=== PATIENT | female | born 1970 | race Caucasian/White ===

== ENCOUNTER 2016-07-25 23:32 | Observation (INO) | payer OTHER ==
[~2016-07-25] VITALS: Ht 157.5 cm; Wt 77.6 kg
[~2016-07-25 23:32] MED LIST: ACCU-CHEK MULT1 EACH MC; ACID CONTROL150 MG PO; ADDERALL10 MG PO; ALPRAZOLAM0.25 MG PO; ALPRAZOLAM2 MG PO; AMBIEN5 M1 PO; ATARAX,VISTARIL50 MG PO; Augmentin PO; BACTRIM,SEPT1 TABLET PO; BENADRYL ALLERG25 MG PO; BENADRYL25 MG PO; CLINDAMYCIN HC300 MG PO; CYMBALTA30 MG PO; CYMBALTA60 MG PO; DESYREL100 MG PO; FLEXERIL10 MG PO; GABAPENTIN300 MG PO; GLUCOPHAGE1000 MG PO; GRALISE300 MG PO; HUMALOG100 UNIT/1 SC; HUMULIN N100 UNITS/ SC; HYDROCODON-ACE1 EAC7 PO; HYDROCODON-ACE1 EAC8 PO; KEFLEX500 MG PO; LANTUS 10100 UNITS/ SC; LANTUS 3 M100 UNITS1 SC; LANTUS100 UNIT/1 IJ; LIDODERM 5% P1 PATCH TD; LISINOPRIL10 MG PO; LITHIUM CARBON300 M1 PO; LITHIUM CARBON300 MG PO; LORTAB 5-325 M1 EACH PO; LUNESTA2 MG PO; MELATONIN10 M1 PO; MELATONIN5 M1 PO; MELOXICAM7.5 MG PO; METFORMIN HCL500 MG PO; MOBIC7.5 MG PO; MOTRIN800 MG PO; NAPROSYN500 MG PO; NEURONTIN300 MG PO; NEURONTIN400 M1 PO; NEURONTIN400 MG PO; NOVOLOG 10100 UNITS/ SC; NOVOLOG100 UNIT/1 SC; OXCARBAZEPINE300 MG PO; PEN-VEE K,VEET500 MG PO; PERCOCET 5/31 TABLET PO; PRAZOSIN HCL1 MG PO; PROMETHAZINE HC25 M1 PO; RANITIDINE HCL150 MG PO; SAPHRIS10 MG SL; SEROQUEL300 MG PO; SIMVASTATIN40 MG PO; TRAMADOL HCL50 MG PO; TRAZODONE HCL100 MG PO; TRILEPTAL150 MG PO; TRILEPTAL300 MG PO; ULTRACET1 TABLET PO; ULTRAM50 MG PO; VALIUM5 MG PO; VICODIN,LORT1 TABLET PO; XANAX1 MG PO; XANAX2 MG PO; ZANTAC150 MG PO; ZOCOR40 MG PO; ZOFRAN ODT4 MG PO; ZOFRAN ODT8 MG PO; ZOFRAN4 MG PO; ZZZQUIL25 MG PO
[2016-07-26 01:43] LABS: CHLORIDE 101 mEq/L (99-109); POTASSIUM 4.3 mEq/L (3.7-5.4); SODIUM 133 mEq/L (136-147)
[2016-07-26 01:44] LABS: GLUCOSE 374 mg/dL (70-99)
[2016-07-26 01:46] LABS: ANION GAP 9 MEQ/L (2-14); MCH 23.8 PG (29.0-34.0); MCHC 32.3 G/DL (30.0-36.0); MCV 73.8 FL (83-99); MEAN PLAT.VOLUME 8.9 uM^3 (9.5-12.4); PLATELET COUNT 372 K/uL (156-360); RBC DIS.WIDTH-CV 15.9 % (11.8-14.6); RBC DIS.WIDTH-SD 42.2 % (39-53); RED BLOOD COUNT 4.74 M/uL (3.80-5.20); WHITE BLOOD COUNT 9.2 K/uL (4.1-10.2)
[2016-07-26 01:48] LABS: GFR ESTIMATE (CALCULATED) > 59 mL/min/
[2016-07-26 01:49] LABS: UREA NITROGEN (BUN) 10 mg/dL (9-23)
[2016-07-26 01:54] LABS: TROP-I INTERPRETATION NEGATIVE; TROPONIN-I < 0.01 ng/mL (0.0-0.30)
[2016-07-26] MEDS ORDERED: XANAX1 MG PO (02:52)
[2016-07-26 02:55] LABS: ADD MIUA? NO; BILIRUBIN NEGATIVE; BLOOD NEGATIVE; COLOR STRAW ((YELLOW)); GLUCOSE (STRIP) >=500; KETONES NEGATIVE; LEUKOCYTES NEGATIVE; NITRITE NEGATIVE; PROTEIN (STRIP) NEGATIVE; SPECIFIC GRAVITY 1.023 (1.000-1.030); UCUL ADDED? NO; UROBILINOGEN 0.2 MG/DL (0.2-1.0)
[2016-07-26 03:04] LABS: ADD MEDTOX COMMENT Y; AMPHETAMINE NEGATIVE (500 ng/mL); BARBITURATES NEGATIVE (200 ng/mL); BENZODIAZEPINES PRESUMPTIVE POSITIVE (150 ng/mL); COCAINE NEGATIVE (150 ng/mL); INTERNAL CONTROLS VALID? YES; METHADONE NEGATIVE (200 ng/mL); METHAMPHETAMINE NEGATIVE (500 ng/mL); OPIATES (MORPHINE) NEGATIVE (100 ng/mL); OXYCODONE NEGATIVE (100 ng/mL); PHENCYCLIDINE NEGATIVE (25 ng/mL); PROPOXYPHENE NEGATIVE (300 ng/mL); THC CANNABINOIDS NEGATIVE (50 ng/mL); TRICYCLIC ANTIDEPRESSANTS NEGATIVE (300 ng/mL)
[2016-07-26 03:35] LABS: D-DIMER ELISA 0.29 mg/L FEU (< 0.57)
[2016-07-26 04:19] VITALS: BP 131/71
[2016-07-26 04:40] LABS: BENZODIAZEPINES QUANT VALUE 0 NG/ML; BENZODIAZEPINES, URINE SCREEN Negative (200 ng/mL)
[2016-07-26 06:44] LABS: Estimated Average Glucose 321 mg/dL (70-123); HEMOGLOBIN A1c (GLYCOHEMOGLOB) 12.8 % HGB (Below 5.7)
[2016-07-26 07:25] LABS: TROP-I INTERPRETATION NEGATIVE; TROPONIN-I < 0.01 ng/mL (0.0-0.30)
[2016-07-26 08:00] VITALS: BP 123/77
[2016-07-26 08:08] LABS: POINT-OF-CARE METER ID UU14162513
[2016-07-26 09:56] LABS: POINT-OF-CARE METER ID UU13113778; POINT-OF-CARE USER ID 515033160
[2016-07-26 12:47] LABS: POINT-OF-CARE METER ID UU14162513
[2016-07-26] MEDS ORDERED: TRILEPTAL300 MG PO (13:14)
[2016-07-26] MEDS ORDERED: NOVOLOG 10100 UNITS/ SC (13:15)
[2016-07-26] MEDS ORDERED: REMERON30 M2 PO (13:16)
[2016-07-26] MEDS ORDERED: ABILIFY5 MG PO (13:16)
[2016-07-26] MEDS ORDERED: DESYREL300 MG PO (13:16)
[2016-07-26] MEDS ORDERED: DURAGESIC50 MCG TD (13:17)
[2016-07-26] MEDS ORDERED: BENADRYL25 MG PO (13:17)
[2016-07-26] MEDS ORDERED: LYRICA200 MG PO (13:18)
[2016-07-26] MEDS ORDERED: GLUCOPHAGE500 MG PO (13:18)
[2016-07-26] MEDS ORDERED: MEVACOR40 MG PO (13:18)
[2016-07-26] MEDS ORDERED: LANTUS 10100 UNITS/ SC (13:35)
[2016-07-26 15:01] LABS: TROP-I INTERPRETATION NEGATIVE; TROPONIN-I < 0.01 ng/mL (0.0-0.30)
[2016-07-26] MEDS ORDERED: ASPIR-LOW81 MG PO (15:36)
[2016-07-26] MEDS ORDERED: BACITRACIN28.4 GM TP (15:36)
== END 2016-07-26 17:05 | disposition home or self-care (01) ==
LOC: EME 23:32 → EDOF 07-26 02:08 → 5WEST 07-26 04:04
PROVIDERS: Emergency Medicine; Hospitalist; Physician Assistant Medical
DX: R07.2 Precordial pain (principal); E11.40 Type 2 diabetes mellitus with diabetic neuropathy, unspecified; I10 Essential (primary) hypertension; E78.5 Hyperlipidemia, unspecified; F31.9 Bipolar disorder, unspecified; F17.200 Nicotine dependence, unspecified, uncomplicated; E11.65 Type 2 diabetes mellitus with hyperglycemia; E78.00 Pure hypercholesterolemia, unspecified; F43.10 Post-traumatic stress disorder, unspecified
CPT/HCPCS: 71020; 73650; 80048; 81003; 82948; 83036; 84484; 84999; 85027; 85379; 87040; 93005; 93306; 93971; 99281; 99284; G0378; J1200; J1650; J1815; J1885; J3480; J7030

== ENCOUNTER → 2016-08-07 | Outpatient (CLI) | payer OTHER ==
[~2016-08-07] MED LIST changes: +ABILIFY5 MG PO; +ASPIR-LOW81 MG PO; +BACITRACIN28.4 GM TP; +DESYREL300 MG PO; +DURAGESIC50 MCG TD; +GLUCOPHAGE500 MG PO; +LYRICA200 MG PO; +MEVACOR40 MG PO; +REMERON30 M2 PO
== END | disposition home or self-care (01) ==
LOC: CDC 11:27
DX: R94.31 Abnormal electrocardiogram [ECG] [EKG] (principal); G56.21 Lesion of ulnar nerve, right upper limb; G56.01 Carpal tunnel syndrome, right upper limb
CPT/HCPCS: 93000

== ENCOUNTER 2017-01-08 15:28 | Inpatient (IN) | payer OTHER ==
[~2017-01-08] VITALS: Ht 157.5 cm; Wt 69.0 kg
[2017-01-08 16:35] LABS: HEMATOCRIT 45.7 % (36.0-46.0); MCH 25.6 PG (29.0-34.0); MCHC 34.1 G/DL (30.0-36.0); MEAN PLAT.VOLUME 9.6 uM^3 (9.5-12.4); PLATELET COUNT 463 K/uL (156-360); RBC DIS.WIDTH-CV 15.3 % (11.8-14.6); RBC DIS.WIDTH-SD 41.2 % (39-53); RED BLOOD COUNT 6.09 M/uL (3.80-5.20); WHITE BLOOD COUNT 20.2 K/uL (4.1-10.2)
[2017-01-08 16:45] LABS: CHLORIDE 81 mEq/L (99-109); POTASSIUM 5.2 mEq/L (3.7-5.4); SODIUM 126 mEq/L (136-147)
[2017-01-08 16:48] LABS: ANION GAP 28 MEQ/L (2-14)
[2017-01-08 16:49] LABS: TOTAL BILIRUBIN 0.4 mg/dL (0.0-1.0)
[2017-01-08 16:51] LABS: ALKALINE PHOSPHATASE 170 IU/L (3-129); GFR ESTIMATE (CALCULATED) 30 mL/min/
[2017-01-08 16:52] LABS: UREA NITROGEN (BUN) 38 mg/dL (9-23)
[2017-01-08 16:57] LABS: GLUCOSE 731 mg/dL (70-99)
[2017-01-08 17:00] LABS: QUANTITATIVE HCG < 4.0 MIU/ML
[2017-01-08 17:22] LABS: CARBON DIOXIDE (BICARBONATE) 23.4 MEQ/L (20-31)
[2017-01-08 18:22] LABS: BASE EXCESS -1.7 mEq/L (-3 to +3); BICARBONATE 22.1 mEq/L (22-26); CARBOXY HGB 3.7 % (0-5); METHEMOGLOBIN 0.7 % (0-1.5); PCO2 34 mm Hg (35-45); PO2 64 mm Hg (80-100); pH 7.42 (7.35-7.45)
[2017-01-08 18:24] LABS: COMMENTS - BLOOD GASES A+C+; DEVICE RA; SITE LR
[2017-01-08 18:45] LABS: TROP-I INTERPRETATION NEGATIVE; TROPONIN-I < 0.01 ng/mL (0.0-0.30)
[2017-01-08 19:23] LABS: LIPASE 4 U/L (1.0-51.0)
[2017-01-08 21:05] LABS: ADD MIUA? YES; BILIRUBIN NEGATIVE; BLOOD SMALL; COLOR STRAW ((YELLOW)); GLUCOSE (STRIP) >=500; KETONES 20; LEUKOCYTES NEGATIVE; NITRITE NEGATIVE; PROTEIN (STRIP) 30; SPECIFIC GRAVITY 1.024 (1.000-1.030); UROBILINOGEN 0.2 MG/DL (0.2-1.0)
[2017-01-08] MEDS ORDERED: LYRICA200 MG PO (21:12)
[2017-01-08 21:15] LABS: BACTERIA NONE SEEN /HPF; EPITHELIAL CELLS 1+ /HPF; MUCUS NONE SEEN /LPF; RED BLOOD CELLS 0-5 /HPF (0-5); UCUL ADDED? NO; WHITE BLOOD CELLS 0-5 /HPF (0-5)
[2017-01-08 21:42] LABS: POTASSIUM 4.4 mEq/L (3.7-5.4); SODIUM 130 mEq/L (136-147)
[2017-01-08 21:43] LABS: CHLORIDE 96 mEq/L (99-109)
[2017-01-08 21:46] LABS: ANION GAP 19 MEQ/L (2-14)
[2017-01-08 21:48] LABS: ALKALINE PHOSPHATASE 135 IU/L (3-129)
[2017-01-08 21:49] LABS: GFR ESTIMATE (CALCULATED) 43 mL/min/; GLUCOSE 528 mg/dL (70-99); UREA NITROGEN (BUN) 34 mg/dL (9-23)
[2017-01-08 21:50] LABS: TOTAL BILIRUBIN 0.3 mg/dL (0.0-1.0)
[2017-01-09] VITALS (7 sets, daily range): BP systolic 109–190; BP diastolic 57–89
[2017-01-09 00:07] LABS: POINT-OF-CARE METER ID UU13113702
[2017-01-09 01:21] LABS: TROP-I INTERPRETATION NEGATIVE; TROPONIN-I 0.04 ng/mL (0.0-0.30)
[2017-01-09 06:14] LABS: HEMATOCRIT 31.7 % (36.0-46.0); MCH 25.8 PG (29.0-34.0); MCHC 33.8 G/DL (30.0-36.0); MCV 76.4 FL (83-99); MEAN PLAT.VOLUME 9.2 uM^3 (9.5-12.4); PLATELET COUNT 329 K/uL (156-360); RBC DIS.WIDTH-CV 15.5 % (11.8-14.6); RBC DIS.WIDTH-SD 43.3 % (39-53)
[2017-01-09 06:15] LABS: RED BLOOD COUNT 4.15 M/uL (3.80-5.20)
[2017-01-09 06:37] LABS: ANION GAP 10 MEQ/L (2-14); CHLORIDE 103 MEQ/L (99-109); GFR ESTIMATE (CALCULATED) > 59 mL/min/; GLUCOSE 228 mg/dL (70-99); POTASSIUM 3.8 MEQ/L (3.7-5.4); SAMPLE HEMOLYSIS CHECK 0; SAMPLE ICTERIC CHECK 0; SAMPLE LIPEMIA CHECK 0; SODIUM 136 MEQ/L (136-147); UREA NITROGEN (BUN) 25 mg/dL (9-23)
[2017-01-09 06:40] LABS: Estimated Average Glucose 372 mg/dL (70-123)
[2017-01-09 06:44] LABS: POINT-OF-CARE METER ID UU13113725; POINT-OF-CARE USER ID 608261329
[2017-01-09 06:49] LABS: HEMOGLOBIN A1c (GLYCOHEMOGLOB) 14.6 % HGB (Below 5.7)
[2017-01-09 06:57] LABS: TROP-I INTERPRETATION NEGATIVE; TROPONIN-I 0.06 ng/mL (0.0-0.30)
[2017-01-09 08:01] LABS: EOSINOPHIL (%) 0 % (0-5); IMMATURE GRANULOCYTE (%) 0.7 % (0.0-0.7); IMMATURE GRANULOCYTE COUNT 0.2 K/uL; INSTRUMENT ABS NEUTROPHIL CT 15.7 K/uL; LYMPHOCYTE COUNT 3.5 K/uL (1.0-2.8); MONOCYTE (%) 7.8 % (3-12); MONOCYTE COUNT 1.6 K/uL (0-0.8); NEUTROPHIL (%) 74.9 % (45-76); NEUTROPHIL COUNT 15.7 K/uL (1.8-6.4)
[2017-01-09 11:22] LABS: POINT-OF-CARE METER ID UU13113725
[2017-01-09 16:41] LABS: POINT-OF-CARE METER ID UU13113725
[2017-01-09 19:57] LABS: HEMATOCRIT 32.4 % (36.0-46.0); MCV 77.3 FL (83-99)
[2017-01-09 21:42] LABS: POINT-OF-CARE METER ID UU13113725; POINT-OF-CARE USER ID 608261316
[2017-01-10 00:39] VITALS: BP 155/77
[2017-01-10 05:23] LABS: ANION GAP 8 MEQ/L (2-14); CHLORIDE 106 MEQ/L (99-109); POTASSIUM 3.2 MEQ/L (3.7-5.4); SAMPLE HEMOLYSIS CHECK 0; SAMPLE ICTERIC CHECK 0; SAMPLE LIPEMIA CHECK 0; SODIUM 136 MEQ/L (136-147)
[2017-01-10 05:24] LABS: HEMATOCRIT 40.4 % (36.0-46.0); MCH 26.6 PG (29.0-34.0); MCHC 34.4 G/DL (30.0-36.0); MCV 77.4 FL (83-99); RBC DIS.WIDTH-CV 15.8 % (11.8-14.6); RBC DIS.WIDTH-SD 44.4 % (39-53); RED BLOOD COUNT 5.22 M/uL (3.80-5.20); WHITE BLOOD COUNT 13.9 K/uL (4.1-10.2)
[2017-01-10 05:29] LABS: GFR ESTIMATE (CALCULATED) > 59 mL/min/; GLUCOSE 132 mg/dL (70-99); UREA NITROGEN (BUN) 9 mg/dL (9-23)
[2017-01-10 06:38] LABS: POINT-OF-CARE METER ID UU13113725
[2017-01-10 06:46] LABS: MEAN PLAT.VOLUME 9.6 uM^3 (9.5-12.4); PLAT.SUFFICIENCY ADEQUATE; PLATELET COUNT 216 K/uL (156-360)
[2017-01-10 08:35] VITALS: BP 138/80
[2017-01-10 08:36] VITALS: BP 138/80
[2017-01-10] MEDS ORDERED: NOVOLOG 10100 UNITS/ SC (09:28)
[2017-01-10 10:42] LABS: POINT-OF-CARE METER ID UU13113725
[2017-01-10 11:38] VITALS: BP 114/65
[2017-01-10 15:19] LABS: POINT-OF-CARE METER ID UU13113702
[2017-01-10 16:30] VITALS: BP 140/77
[2017-01-10 16:44] LABS: POINT-OF-CARE METER ID UU13113774
[2017-01-10 20:57] LABS: POINT-OF-CARE METER ID UU13113725
[2017-01-10 23:16] VITALS: BP 130/75
[2017-01-11 03:54] VITALS: BP 105/58
[2017-01-11 06:30] LABS: POINT-OF-CARE METER ID UU13113774
[2017-01-11 08:03] VITALS: BP 116/60
[2017-01-11 09:41] LABS: HEMATOCRIT 30.2 % (36.0-46.0); MCHC 34.1 G/DL (30.0-36.0); MCV 79.1 FL (83-99); MEAN PLAT.VOLUME 9.4 uM^3 (9.5-12.4); PLATELET COUNT 292 K/uL (156-360); RBC DIS.WIDTH-CV 15.9 % (11.8-14.6); RBC DIS.WIDTH-SD 45.5 % (39-53); RED BLOOD COUNT 3.82 M/uL (3.80-5.20); WHITE BLOOD COUNT 9.1 K/uL (4.1-10.2)
[2017-01-11 09:59] LABS: ANION GAP 4 MEQ/L (2-14); CHLORIDE 110 MEQ/L (99-109); POTASSIUM 3.7 MEQ/L (3.7-5.4); SAMPLE HEMOLYSIS CHECK 0; SAMPLE ICTERIC CHECK 0; SAMPLE LIPEMIA CHECK 0; SODIUM 140 MEQ/L (136-147)
[2017-01-11 10:05] LABS: GFR ESTIMATE (CALCULATED) > 59 mL/min/; GLUCOSE 115 mg/dL (70-99); UREA NITROGEN (BUN) 5 mg/dL (9-23)
[2017-01-11 11:47] LABS: POINT-OF-CARE METER ID UU13113774
[2017-01-11 16:24] LABS: POINT-OF-CARE METER ID UU13113725
[2017-01-11 16:53] VITALS: BP 103/60
[2017-01-11 21:28] LABS: POINT-OF-CARE METER ID UU13113774
[2017-01-11 23:56] VITALS: BP 118/63
[2017-01-12 05:56] LABS: POINT-OF-CARE METER ID UU13113725
[2017-01-12 07:28] VITALS: BP 122/66
[2017-01-12 11:11] LABS: POINT-OF-CARE METER ID UU13113774
[2017-01-12] MEDS ORDERED: PROTONIX40 MG PO (11:52)
[2017-01-12] MEDS ORDERED: ZOFRAN ODT8 MG PO (11:55)
== END 2017-01-12 13:25 | disposition home or self-care (01) | DRG 683 ==
LOC: EME 15:28 → 5EAST 23:02 → EDOF 23:02 → ENRESERV 23:04 → EDOF 01-09 00:13 → 5EAST 01-09 00:20
PROVIDERS: Emergency Medicine; Hospitalist; Internal Medicine; Physician Assistant
DX: N17.9 Acute kidney failure, unspecified (principal); E11.65 Type 2 diabetes mellitus with hyperglycemia; E87.1 Hypo-osmolality and hyponatremia; E87.6 Hypokalemia; F31.9 Bipolar disorder, unspecified; F14.10 Cocaine abuse, uncomplicated; K29.70 Gastritis, unspecified, without bleeding; K05.10 Chronic gingivitis, plaque induced; E11.43 Type 2 diabetes mellitus with diabetic autonomic (poly)neuropathy; L89.629 Pressure ulcer of left heel, unspecified stage; I10 Essential (primary) hypertension; E78.5 Hyperlipidemia, unspecified; K21.9 Gastro-esophageal reflux disease without esophagitis; F43.10 Post-traumatic stress disorder, unspecified; F11.10 Opioid abuse, uncomplicated; F12.10 Cannabis abuse, uncomplicated; F60.2 Antisocial personality disorder; F17.200 Nicotine dependence, unspecified, uncomplicated; F41.9 Anxiety disorder, unspecified; D72.829 Elevated white blood cell count, unspecified; E87.2 Acidosis; J45.909 Unspecified asthma, uncomplicated; Z91.19 Patient's noncompliance with other medical treatment and regimen; Z79.4 Long term (current) use of insulin; Z91.14 Patient's other noncompliance with medication regimen; Z90.49 Acquired absence of other specified parts of digestive tract; Z79.82 Long term (current) use of aspirin; Z79.899 Other long term (current) drug therapy; Z83.3 Family history of diabetes mellitus; K31.84 Gastroparesis
CPT/HCPCS: 36600; 71020; 74176; 80048; 80053; 81003; 82010; 82272; 82803; 82948; 83036; 83605; 83690; 84484; 84702; 85014; 85018; 85025; 85027; 87040; 93005; 99281; 99285; C9113; J1815; J1956; J2060; J2270; J2405; J2543; J3010; J3260; J3370; J7030; J7050

== ENCOUNTER 2017-03-31 13:29 | Emergency (ER) | payer OTHER ==
[~2017-03-31] VITALS: Ht 157.5 cm; Wt 71.2 kg
[~2017-03-31 13:29] MED LIST changes: +PROTONIX40 MG PO
[2017-03-31 13:54] LABS: POINT-OF-CARE METER ID UU13113778
[2017-03-31 14:57] LABS: MCH 25.8 PG (29.0-34.0); MCV 78.2 FL (83-99); MEAN PLAT.VOLUME 10.2 uM^3 (9.5-12.4); PLATELET COUNT 320 K/uL (156-360); RBC DIS.WIDTH-CV 14.6 % (11.8-14.6); RBC DIS.WIDTH-SD 41.1 % (39-53)
[2017-03-31 15:07] LABS: CHLORIDE 100 mEq/L (99-109); SODIUM 132 mEq/L (136-147)
[2017-03-31 15:08] LABS: GLUCOSE 372 mg/dL (70-99)
[2017-03-31 15:10] LABS: ANION GAP 16 MEQ/L (2-14)
[2017-03-31 15:12] LABS: GFR ESTIMATE (CALCULATED) > 59 mL/min/
[2017-03-31 15:13] LABS: UREA NITROGEN (BUN) 12 mg/dL (9-23)
[2017-03-31] MEDS ORDERED: CIPRO500 MG PO (17:12)
[2017-03-31] MEDS ORDERED: FLAGYL500 MG PO (17:12)
[2017-03-31 17:13] LABS: CARBON DIOXIDE (BICARBONATE) 24.5 MEQ/L (20-31)
[2017-03-31 18:05] VITALS: BP 161/91
== END 2017-03-31 18:06 | disposition home or self-care (01) ==
LOC: EME 13:29
PROVIDERS: Emergency Medicine
PROC: 0H98XZZ Drainage of Buttock Skin, External Approach (ICD-10-PCS; principal; 2017-03-31)
DX: L05.01 Pilonidal cyst with abscess (principal); K62.89 Other specified diseases of anus and rectum; E11.40 Type 2 diabetes mellitus with diabetic neuropathy, unspecified; E78.5 Hyperlipidemia, unspecified; F32.9 Major depressive disorder, single episode, unspecified; F31.9 Bipolar disorder, unspecified; F41.9 Anxiety disorder, unspecified; Z79.4 Long term (current) use of insulin; F17.200 Nicotine dependence, unspecified, uncomplicated; Z88.5 Allergy status to narcotic agent
CPT/HCPCS: 74177; 80048; 81003; 82010; 82803; 82948; 85027; 86850; 86900; 86901; 99281; 99284; J2270; J2405; J7030

== ENCOUNTER 2017-05-22 12:29 | Inpatient (IN) | payer OTHER ==
[~2017-05-22] VITALS: Ht 157.5 cm; Wt 75.5 kg
[~2017-05-22 12:29] MED LIST changes: +CIPRO500 MG PO; +FLAGYL500 MG PO
[2017-05-22 13:05] LABS: BASOPHIL (%) 0.3 % (0-1); BASOPHIL COUNT 0.1 K/uL (0-0.1); EOSINOPHIL (%) 0 % (0-5); HEMATOCRIT 47.1 % (36.0-46.0); HEMOGLOBIN 15.6 G/DL (11.9-15.5); IMMATURE GRANULOCYTE (%) 0.7 % (0.0-0.7); LYMPHOCYTE (%) 7.7 % (15-42); LYMPHOCYTE COUNT 1.4 K/uL (1.0-2.8); MCHC 33.1 G/DL (30.0-36.0); MCV 78.6 FL (83-99); MONOCYTE (%) 2.8 % (3-12); MONOCYTE COUNT 0.5 K/uL (0-0.8); NEUTROPHIL (%) 88.5 % (45-76); NEUTROPHIL COUNT 16.1 K/uL (1.8-6.4); PLATELET COUNT 366 K/uL (156-360); RBC DIS.WIDTH-CV 16.3 % (11.8-14.6); RBC DIS.WIDTH-SD 44.9 % (39-53); RED BLOOD COUNT 5.99 M/uL (3.80-5.20); WHITE BLOOD COUNT 18.1 K/uL (4.1-10.2)
[2017-05-22 13:19] LABS: ALBUMIN 4.4 g/dL (3.2-4.8)
[2017-05-22 13:20] LABS: CHLORIDE 98 mEq/L (99-109); POTASSIUM 4.9 mEq/L (3.7-5.4); SODIUM 137 mEq/L (136-147)
[2017-05-22 13:22] LABS: TOTAL PROTEIN 7.8 g/dL (6.4-8.3)
[2017-05-22 13:24] LABS: TOTAL BILIRUBIN 0.3 mg/dL (0.0-1.0)
[2017-05-22 13:25] LABS: ALKALINE PHOSPHATASE 139 IU/L (3-129)
[2017-05-22 13:26] LABS: GFR ESTIMATE (CALCULATED) > 59 mL/min/
[2017-05-22 13:27] LABS: AST (GOT) 12 IU/L (2-34); UREA NITROGEN (BUN) 14 mg/dL (9-23)
[2017-05-22 13:29] LABS: ALT (GPT) 14 IU/L (3-49); LIPASE 7 U/L (1.0-51.0)
[2017-05-22 13:36] LABS: GLUCOSE 451 mg/dL (70-99)
[2017-05-22 13:53] LABS: BASE EXCESS -9.3 mEq/L (-3 to +3); BICARBONATE 13.9 mEq/L (22-26); CARBOXY HGB 0.3 % (0-5); COMMENTS - BLOOD GASES A+C=; METHEMOGLOBIN 0.4 % (0-1.5); PCO2 24 mm Hg (35-45); PO2 102 mm Hg (80-100); SITE LR; pH 7.37 (7.35-7.45)
[2017-05-22 15:33] LABS: CHLORIDE 106 mEq/L (99-109); POTASSIUM 4.7 mEq/L (3.7-5.4); SODIUM 137 mEq/L (136-147)
[2017-05-22 15:35] LABS: GLUCOSE 317 mg/dL (70-99)
[2017-05-22 15:39] LABS: CREATININE 0.9 mg/dL (0.6-1.3); GFR ESTIMATE (CALCULATED) > 59 mL/min/; UREA NITROGEN (BUN) 13 mg/dL (9-23)
[2017-05-22 16:30] LABS: PHOSPHORUS 3.1 mg/dL (2.5-4.9)
[2017-05-22] MEDS ORDERED: LIBRIUM25 MG PO ×2 (16:34→16:35)
[2017-05-22] MEDS ORDERED: HUMULIN R100 UNITS/ SC (16:36)
[2017-05-22] MEDS ORDERED: GERI-LANTA LIQ355 ML PO (16:36)
[2017-05-22] MEDS ORDERED: ADVIL,NUPRIN,M200 MG PO (16:36)
[2017-05-22] MEDS ORDERED: IMODIUM A-D2 M2 PO (16:36)
[2017-05-22] MEDS ORDERED: ZOFRAN4 MG PO (16:37)
[2017-05-22] MEDS ORDERED: B-1100 MG PO (16:37)
[2017-05-22] MEDS ORDERED: ZOFRAN4 MG/2 ML IV (16:38)
[2017-05-22 18:00] VITALS: BP 149/85
[2017-05-22 20:00] VITALS: BP 152/83
[2017-05-22 20:41] LABS: CHLORIDE 105 MEQ/L (99-109); POTASSIUM 4.1 MEQ/L (3.7-5.4); SODIUM 138 MEQ/L (136-147)
[2017-05-22 20:46] LABS: CREATININE 0.7 MG/DL (0.6-1.3); GFR ESTIMATE (CALCULATED) > 59 mL/min/; GLUCOSE 245 mg/dL (70-99); UREA NITROGEN (BUN) 13 mg/dL (9-23)
[2017-05-22 21:00] VITALS: BP 158/89
[2017-05-22 22:00] VITALS: BP 142/75
[2017-05-22 23:00] VITALS: BP 137/75
[2017-05-23] VITALS (19 sets, daily range): BP systolic 125–179; BP diastolic 71–108
[2017-05-23 00:42] LABS: CHLORIDE 111 mEq/L (99-109); SODIUM 139 mEq/L (136-147)
[2017-05-23 00:44] LABS: GLUCOSE 132 mg/dL (70-99)
[2017-05-23 00:48] LABS: CREATININE 0.7 mg/dL (0.6-1.3); GFR ESTIMATE (CALCULATED) > 59 mL/min/
[2017-05-23 00:49] LABS: UREA NITROGEN (BUN) 13 mg/dL (9-23)
[2017-05-23 00:51] LABS: POTASSIUM 3.1 mEq/L (3.7-5.4)
[2017-05-23 05:12] LABS: CHLORIDE 110 mEq/L (99-109); POTASSIUM 3.5 mEq/L (3.7-5.4); SODIUM 136 mEq/L (136-147)
[2017-05-23 05:14] LABS: GLUCOSE 179 mg/dL (70-99)
[2017-05-23 05:17] LABS: PHOSPHORUS 2.4 mg/dL (2.5-4.9)
[2017-05-23 05:18] LABS: CREATININE 0.8 mg/dL (0.6-1.3); GFR ESTIMATE (CALCULATED) > 59 mL/min/
[2017-05-23 05:19] LABS: UREA NITROGEN (BUN) 13 mg/dL (9-23)
[2017-05-23 08:26] LABS: CHLORIDE 108 MEQ/L (99-109); POTASSIUM 3.4 MEQ/L (3.7-5.4); SODIUM 137 MEQ/L (136-147)
[2017-05-23 08:32] LABS: CREATININE 0.6 MG/DL (0.6-1.3); GFR ESTIMATE (CALCULATED) > 59 mL/min/; GLUCOSE 199 mg/dL (70-99); PHOSPHORUS 2.1 mg/dL (2.5-4.9); UREA NITROGEN (BUN) 12 mg/dL (9-23)
[2017-05-23 10:47] LABS: HEMOGLOBIN A1c (GLYCOHEMOGLOB) 15.2 % (Below 5.7)
[2017-05-23 16:35] LABS: CHLORIDE 105 MEQ/L (99-109); CREATININE 0.6 MG/DL (0.6-1.3); GFR ESTIMATE (CALCULATED) > 59 mL/min/; GLUCOSE 275 mg/dL (70-99); SODIUM 134 MEQ/L (136-147); UREA NITROGEN (BUN) 7 mg/dL (9-23)
[2017-05-23 16:36] LABS: POTASSIUM 4.4 MEQ/L (3.7-5.4)
[2017-05-23 19:32] LABS: CHLORIDE 104 MEQ/L (99-109); CREATININE 0.6 MG/DL (0.6-1.3); GFR ESTIMATE (CALCULATED) > 59 mL/min/; GLUCOSE 339 mg/dL (70-99); SODIUM 132 MEQ/L (136-147); UREA NITROGEN (BUN) 7 mg/dL (9-23)
[2017-05-23 19:39] LABS: POTASSIUM 3.5 MEQ/L (3.7-5.4)
[2017-05-24] VITALS (12 sets, daily range): BP systolic 128–200; BP diastolic 77–99
[2017-05-24 00:57] LABS: TROP-I INTERPRETATION NEGATIVE; TROPONIN-I < 0.01 ng/mL (0.0-0.30)
[2017-05-24 06:33] LABS: PHOSPHORUS 3.6 mg/dL (2.5-4.9)
[2017-05-24 08:50] LABS: HEMATOCRIT 37.1 % (36.0-46.0); MCH 26.4 PG (29.0-34.0); MCHC 33.7 G/DL (30.0-36.0); MCV 78.3 FL (83-99); PLATELET COUNT 296 K/uL (156-360); RBC DIS.WIDTH-CV 15.9 % (11.8-14.6); RBC DIS.WIDTH-SD 45.1 % (39-53); WHITE BLOOD COUNT 7.9 K/uL (4.1-10.2)
[2017-05-24 08:51] LABS: HEMOGLOBIN 12.5 G/DL (11.9-15.5); RED BLOOD COUNT 4.74 M/uL (3.80-5.20)
[2017-05-24 10:26] LABS: APPEARANCE CLOUDY ((CLEAR)); BILIRUBIN NEGATIVE; BLOOD MODERATE; COLOR YELLOW ((YELLOW)); GLUCOSE (STRIP) >=500; KETONES 20; LEUKOCYTES TRACE; NITRITE NEGATIVE; PROTEIN (STRIP) 100; SPECIFIC GRAVITY 1.021 (1.000-1.030); UROBILINOGEN 0.2 MG/DL (0.2-1.0)
[2017-05-24 11:09] LABS: BACTERIA 3+ /HPF; EPITHELIAL CELLS RARE /HPF; MUCUS NONE SEEN /LPF; WHITE BLOOD CELLS 20-30 /HPF (0-5)
[2017-05-24 20:46] LABS: CHLORIDE 103 MEQ/L (99-109); POTASSIUM 3.9 MEQ/L (3.7-5.4); SODIUM 134 MEQ/L (136-147)
[2017-05-24 20:52] LABS: CREATININE 0.6 MG/DL (0.6-1.3); GFR ESTIMATE (CALCULATED) > 59 mL/min/; GLUCOSE 294 mg/dL (70-99); UREA NITROGEN (BUN) 10 mg/dL (9-23)
[2017-05-25] VITALS (7 sets, daily range): BP systolic 132–159; BP diastolic 75–91
[2017-05-25 06:01] LABS: BASOPHIL (%) 0.5 % (0-1); EOSINOPHIL (%) 1.5 % (0-5); EOSINOPHIL COUNT 0.1 K/uL (0-0.3); HEMATOCRIT 37.8 % (36.0-46.0); HEMOGLOBIN 12.8 G/DL (11.9-15.5); IMMATURE GRANULOCYTE (%) 0.4 % (0.0-0.7); LYMPHOCYTE (%) 45.4 % (15-42); LYMPHOCYTE COUNT 3.8 K/uL (1.0-2.8); MCH 26.2 PG (29.0-34.0); MCHC 33.9 G/DL (30.0-36.0); MCV 77.3 FL (83-99); MONOCYTE (%) 10.5 % (3-12); MONOCYTE COUNT 0.9 K/uL (0-0.8); NEUTROPHIL (%) 41.7 % (45-76); NEUTROPHIL COUNT 3.5 K/uL (1.8-6.4); PLATELET COUNT 313 K/uL (156-360); RBC DIS.WIDTH-CV 15.6 % (11.8-14.6); RBC DIS.WIDTH-SD 43.8 % (39-53); RED BLOOD COUNT 4.89 M/uL (3.80-5.20); WHITE BLOOD COUNT 8.5 K/uL (4.1-10.2)
[2017-05-25 06:58] LABS: CHLORIDE 102 MEQ/L (99-109); CREATININE 0.6 MG/DL (0.6-1.3); GFR ESTIMATE (CALCULATED) > 59 mL/min/; PHOSPHORUS 3.3 mg/dL (2.5-4.9); POTASSIUM 3.3 MEQ/L (3.7-5.4); SODIUM 135 MEQ/L (136-147); UREA NITROGEN (BUN) 11 mg/dL (9-23)
[2017-05-25 06:59] LABS: GLUCOSE 101 mg/dL (70-99)
[2017-05-25 20:38] LABS: CHLORIDE 100 MEQ/L (99-109); CREATININE 0.7 MG/DL (0.6-1.3); GFR ESTIMATE (CALCULATED) > 59 mL/min/; GLUCOSE 330 mg/dL (70-99); POTASSIUM 4.5 MEQ/L (3.7-5.4); SODIUM 131 MEQ/L (136-147); UREA NITROGEN (BUN) 14 mg/dL (9-23)
[2017-05-26 04:00] VITALS: BP 161/89
[2017-05-26 05:32] LABS: BASOPHIL (%) 0.5 % (0-1); EOSINOPHIL (%) 2.9 % (0-5); EOSINOPHIL COUNT 0.2 K/uL (0-0.3); HEMATOCRIT 38.4 % (36.0-46.0); HEMOGLOBIN 13.1 G/DL (11.9-15.5); IMMATURE GRANULOCYTE (%) 0.4 % (0.0-0.7); LYMPHOCYTE (%) 41.4 % (15-42); LYMPHOCYTE COUNT 3.2 K/uL (1.0-2.8); MCH 26.5 PG (29.0-34.0); MCHC 34.1 G/DL (30.0-36.0); MCV 77.6 FL (83-99); MONOCYTE (%) 9.3 % (3-12); MONOCYTE COUNT 0.7 K/uL (0-0.8); NEUTROPHIL (%) 45.5 % (45-76); NEUTROPHIL COUNT 3.5 K/uL (1.8-6.4); PLATELET COUNT 286 K/uL (156-360); RBC DIS.WIDTH-CV 15.8 % (11.8-14.6); RBC DIS.WIDTH-SD 44.1 % (39-53); RED BLOOD COUNT 4.95 M/uL (3.80-5.20); WHITE BLOOD COUNT 7.7 K/uL (4.1-10.2)
[2017-05-26 06:09] LABS: CHLORIDE 101 MEQ/L (99-109); CREATININE 0.6 MG/DL (0.6-1.3); GFR ESTIMATE (CALCULATED) > 59 mL/min/; GLUCOSE 199 mg/dL (70-99); SODIUM 134 MEQ/L (136-147); UREA NITROGEN (BUN) 14 mg/dL (9-23)
[2017-05-26 08:40] VITALS: BP 26/81
[2017-05-26] MEDS ORDERED: NIFEDIPINE ER30 MG PO (10:45)
[2017-05-26] MEDS ORDERED: REGLAN10 MG PO (10:48)
[2017-05-26] MEDS ORDERED: PROTONIX40 MG PO (10:48)
[2017-05-26 11:25] VITALS: BP 138/73
[2017-05-26 15:35] VITALS: BP 141/83
[2017-05-26 20:30] VITALS: BP 130/69
[2017-05-27 00:51] VITALS: BP 128/83
[2017-05-27 04:59] VITALS: BP 122/71
[2017-05-27 05:40] LABS: BASOPHIL (%) 0.6 % (0-1); BASOPHIL COUNT 0.1 K/uL (0-0.1); EOSINOPHIL (%) 2.6 % (0-5); EOSINOPHIL COUNT 0.2 K/uL (0-0.3); HEMATOCRIT 39.2 % (36.0-46.0); HEMOGLOBIN 13.2 G/DL (11.9-15.5); IMMATURE GRANULOCYTE (%) 0.6 % (0.0-0.7); LYMPHOCYTE (%) 41.3 % (15-42); LYMPHOCYTE COUNT 3.7 K/uL (1.0-2.8); MCH 25.9 PG (29.0-34.0); MCHC 33.7 G/DL (30.0-36.0); MONOCYTE (%) 8.2 % (3-12); MONOCYTE COUNT 0.7 K/uL (0-0.8); NEUTROPHIL (%) 46.7 % (45-76); NEUTROPHIL COUNT 4.2 K/uL (1.8-6.4); PLATELET COUNT 339 K/uL (156-360); RBC DIS.WIDTH-CV 15.4 % (11.8-14.6); RBC DIS.WIDTH-SD 42.9 % (39-53); RED BLOOD COUNT 5.09 M/uL (3.80-5.20); WHITE BLOOD COUNT 8.9 K/uL (4.1-10.2)
[2017-05-27 06:01] LABS: CHLORIDE 104 MEQ/L (99-109); CREATININE 0.6 MG/DL (0.6-1.3); GFR ESTIMATE (CALCULATED) > 59 mL/min/; GLUCOSE 132 mg/dL (70-99); POTASSIUM 4.2 MEQ/L (3.7-5.4); SODIUM 135 MEQ/L (136-147); UREA NITROGEN (BUN) 12 mg/dL (9-23)
[2017-05-27 07:53] VITALS: BP 147/79
== END 2017-05-27 16:43 | DRG 638 ==
LOC: EME 12:29 → EDOF 15:50 → 4EAST 15:50 → 4WEST 15:50 → ENRESERV 15:57 → 4WEST 16:53 → ENRESERV 05-24 05:43 → 4WEST 05-24 06:18 → 4EAST 05-24 07:15
PROVIDERS: Emergency Medicine; Internal Medicine; Internal Medicine Critical Care Medicine; Surgery
PROC: 0DB98ZX Excision of Duodenum, Via Natural or Artificial Opening Endoscopic, Diagnostic (ICD-10-PCS; principal; 2017-05-27)
DX: E11.10 Type 2 diabetes mellitus with ketoacidosis without coma (principal); K92.0 Hematemesis; F11.23 Opioid dependence with withdrawal; R10.13 Epigastric pain; R13.10 Dysphagia, unspecified; E86.0 Dehydration; E87.6 Hypokalemia; F17.200 Nicotine dependence, unspecified, uncomplicated; G43.909 Migraine, unspecified, not intractable, without status migrainosus; E78.5 Hyperlipidemia, unspecified; F31.9 Bipolar disorder, unspecified; F43.10 Post-traumatic stress disorder, unspecified; I10 Essential (primary) hypertension; F32.9 Major depressive disorder, single episode, unspecified; F41.9 Anxiety disorder, unspecified; K63.89 Other specified diseases of intestine; F60.2 Antisocial personality disorder; Z88.5 Allergy status to narcotic agent; Z79.4 Long term (current) use of insulin; Z23 Encounter for immunization
CPT/HCPCS: 36600; 71045; 74249; 78264; 80048; 80048 91; 80053; 81003; 82010; 82803; 82948; 83036; 83690; 84100; 84484; 85025; 85027; 86850; 86900; 86901; 87641; 88305; 93005; 99281; 99285; A9541; C9113; J1650; J1815; J1885; J2250; J2270; J2405; J2765; J3010; J7030; J7050

== ENCOUNTER 2017-06-25 14:49 | Inpatient (IN) | payer OTHER ==
[2017-06-25] VITALS (10 sets, daily range): BP systolic 129–165; BP diastolic 78–107
[~2017-06-25] VITALS: Ht 167.6 cm; Wt 73.8 kg
[~2017-06-25 14:49] MED LIST changes: +ADVIL,NUPRIN,M200 MG PO; +B-1100 MG PO; +GERI-LANTA LIQ355 ML PO; +HUMULIN R100 UNITS/ SC; +IMODIUM A-D2 M2 PO; +LIBRIUM25 MG PO; +NIFEDIPINE ER30 MG PO; +REGLAN10 MG PO; +ZOFRAN4 MG/2 ML IV
[2017-06-25 15:29] LABS: AMYLASE 14 IU/L (1-118); CHLORIDE 104 mEq/L (99-109); POTASSIUM 4.6 mEq/L (3.7-5.4); SODIUM 135 mEq/L (136-147)
[2017-06-25 15:30] LABS: HEMATOCRIT 35.9 % (36.0-46.0); HEMOGLOBIN 11.4 G/DL (11.9-15.5); MCH 26.7 PG (29.0-34.0); MCHC 31.8 G/DL (30.0-36.0); PTT 27.5 SEC (25-37); RED BLOOD COUNT 4.27 M/uL (3.80-5.20); WHITE BLOOD COUNT 18.5 K/uL (4.1-10.2)
[2017-06-25 15:33] LABS: MCV 84.1 FL (83-99)
[2017-06-25 15:34] LABS: SERUM ETHYL ALCOHOL < 10 mg/dL
[2017-06-25 15:35] LABS: CREATININE 1.1 mg/dL (0.6-1.3); GFR ESTIMATE (CALCULATED) 57 mL/min/
[2017-06-25 15:36] LABS: UREA NITROGEN (BUN) 18 mg/dL (9-23)
[2017-06-25 15:38] LABS: LIPASE 13 U/L (1.0-51.0)
[2017-06-25 15:41] LABS: GLUCOSE 409 mg/dL (70-99); TROP-I INTERPRETATION NEGATIVE; TROPONIN-I < 0.01 ng/mL (0.0-0.30)
[2017-06-25 15:44] LABS: QUANTITATIVE HCG < 4.0 MIU/ML
[2017-06-25 16:10] LABS: ABS NEUTROPHIL COUNT 11.3; ANISOCYTOSIS 1+; ATYPICAL LYMPHOCYTE 2.6 %; BAND NEUTROPHILS 29.6 % (0-8.0); BURR CELLS 2+; EOSINOPHIL ABS CT 0; LYMPHOCYTES 25.2 % (15.0-45.0); METAMYELOCYTES 5.2 %; MONOCYTES 5.2 % (0-9.0); MYELOCYTES 0.9 %; OVALOCYTES 1+; PLATELET CLUMPS PRESENT - PLATELET COUNT APPEARS ADQ.; PLATELET COUNT 313 K/uL (156-360); POIKILOCYTOSIS 1+; SEG.NEUTROPHILS 31.3 % (46.0-76.0); SPHEROCYTES 1+
[2017-06-25 17:09] LABS: APPEARANCE SL.HAZY ((CLEAR)); BILIRUBIN NEGATIVE; BLOOD SMALL; COLOR YELLOW ((YELLOW)); GLUCOSE (STRIP) >=500; KETONES NEGATIVE; LEUKOCYTES NEGATIVE; NITRITE NEGATIVE; PROTEIN (STRIP) 100; SPECIFIC GRAVITY 1.021 (1.000-1.030); UROBILINOGEN 0.2 MG/DL (0.2-1.0)
[2017-06-25 17:20] LABS: BACTERIA RARE /HPF; EPITHELIAL CELLS RARE /HPF; MUCUS TRACE /LPF; UCUL ADDED? YES
[2017-06-25 17:35] LABS: AMPHETAMINE NEGATIVE (500 ng/mL); BARBITURATES NEGATIVE (200 ng/mL); BENZODIAZEPINES PRESUMPTIVE POSITIVE (150 ng/mL); BUPRENORPHINE NEGATIVE (10 ng/mL); COCAINE NEGATIVE (150 ng/mL); METHADONE NEGATIVE (200 ng/mL); METHAMPHETAMINE NEGATIVE (500 ng/mL); OPIATES (MORPHINE) PRESUMPTIVE POSITIVE (100 ng/mL); OXYCODONE NEGATIVE (100 ng/mL); PHENCYCLIDINE NEGATIVE (25 ng/mL); PROPOXYPHENE NEGATIVE (300 ng/mL); THC CANNABINOIDS NEGATIVE (50 ng/mL); TRICYCLIC ANTIDEPRESSANTS NEGATIVE (300 ng/mL)
[2017-06-25 18:11] LABS: BENZODIAZEPINES, URINE SCREEN Negative (200 ng/mL)
[2017-06-25 19:20] LABS: BASOPHIL (%) 0.3 % (0-1); BASOPHIL COUNT 0.1 K/uL (0-0.1); EOSINOPHIL (%) 0 % (0-5); HEMATOCRIT 37.6 % (36.0-46.0); HEMOGLOBIN 12.2 G/DL (11.9-15.5); IMMATURE GRANULOCYTE (%) 2.8 % (0.0-0.7); LYMPHOCYTE (%) 4.5 % (15-42); LYMPHOCYTE COUNT 1.2 K/uL (1.0-2.8); MCH 26.1 PG (29.0-34.0); MCHC 32.4 G/DL (30.0-36.0); MCV 80.5 FL (83-99); MONOCYTE (%) 6.2 % (3-12); MONOCYTE COUNT 1.7 K/uL (0-0.8); NEUTROPHIL (%) 86.2 % (45-76); NEUTROPHIL COUNT 23.1 K/uL (1.8-6.4); PLATELET COUNT 394 K/uL (156-360); RBC DIS.WIDTH-CV 15.9 % (11.8-14.6); RBC DIS.WIDTH-SD 46.2 % (39-53); RED BLOOD COUNT 4.67 M/uL (3.80-5.20); WHITE BLOOD COUNT 26.8 K/uL (4.1-10.2)
[2017-06-25 19:21] LABS: BASE EXCESS -4.9 mEq/L (-3 to +3); BICARBONATE 21.1 mEq/L (22-26); CARBOXY HGB 0.3 % (0-5); METHEMOGLOBIN 0.7 % (0-1.5); PO2 512 mm Hg (80-100); pH 7.31 (7.35-7.45)
[2017-06-25 19:22] LABS: COMMENTS - BLOOD GASES C+; DEVICE VENT; FI02 100 %; MECHANICAL RATE 16 resp/min; MODE AC; PCO2 42 mm Hg (35-45); PEEP 5 CM/H20; SITE LR ALINE; TIDAL VOLUME 450 ML; TOTAL RESP RATE 19 resp/min
[2017-06-25 19:38] LABS: TROP-I INTERPRETATION NEGATIVE; TROPONIN-I 0.28 ng/mL (0.0-0.30)
[2017-06-25 19:44] LABS: ALBUMIN 3.5 G/DL (3.2-4.8); ALKALINE PHOSPHATASE 104 IU/L (3-129); ALT (GPT) 109 IU/L (3-49); AST (GOT) 116 IU/L (2-34); CHLORIDE 103 MEQ/L (99-109); CREATININE 0.7 MG/DL (0.6-1.3); GFR ESTIMATE (CALCULATED) > 59 mL/min/; GLUCOSE 379 mg/dL (70-99); MAGNESIUM 1.7 mg/dl (1.3-2.7); PHOSPHORUS 3.4 mg/dL (2.5-4.9); SODIUM 134 MEQ/L (136-147); TOTAL BILIRUBIN 0.2 MG/DL (0.0-1.0); TOTAL PROTEIN 6.5 G/DL (6.4-8.3); UREA NITROGEN (BUN) 17 mg/dL (9-23)
[2017-06-25 19:55] LABS: PTT 34.3 SEC (25-37)
[2017-06-26] VITALS: BP 146/104
[2017-06-26 00:37] LABS: BASOPHIL (%) 0.2 % (0-1); EOSINOPHIL (%) 0 % (0-5); HEMATOCRIT 37.9 % (36.0-46.0); HEMOGLOBIN 12.7 G/DL (11.9-15.5); IMMATURE GRANULOCYTE (%) 1.4 % (0.0-0.7); LYMPHOCYTE (%) 3.1 % (15-42); LYMPHOCYTE COUNT 0.7 K/uL (1.0-2.8); MCH 26.6 PG (29.0-34.0); MCHC 33.5 G/DL (30.0-36.0); MCV 79.5 FL (83-99); MONOCYTE (%) 1.8 % (3-12); MONOCYTE COUNT 0.4 K/uL (0-0.8); NEUTROPHIL (%) 93.5 % (45-76); PLATELET COUNT 383 K/uL (156-360); RBC DIS.WIDTH-CV 15.4 % (11.8-14.6); RBC DIS.WIDTH-SD 44.7 % (39-53); RED BLOOD COUNT 4.77 M/uL (3.80-5.20); WHITE BLOOD COUNT 23.6 K/uL (4.1-10.2)
[2017-06-26 01:02] LABS: PTT 36.2 SEC (25-37)
[2017-06-26 01:32] LABS: TROP-I INTERPRETATION INDETERMINATE; TROPONIN-I 0.47 ng/mL (0.0-0.30)
[2017-06-26 01:50] LABS: CHLORIDE 104 MEQ/L (99-109); CREATININE 0.7 MG/DL (0.6-1.3); GFR ESTIMATE (CALCULATED) > 59 mL/min/; MAGNESIUM 1.7 mg/dl (1.3-2.7); PHOSPHORUS 2.8 mg/dL (2.5-4.9); POTASSIUM 3.8 MEQ/L (3.7-5.4); SODIUM 139 MEQ/L (136-147); UREA NITROGEN (BUN) 17 mg/dL (9-23)
[2017-06-26 01:51] LABS: GLUCOSE 420 mg/dL (70-99)
[2017-06-26 04:00] VITALS: BP 142/80
[2017-06-26 06:38] LABS: BASOPHIL (%) 0.2 % (0-1); EOSINOPHIL (%) 0 % (0-5); HEMATOCRIT 40.7 % (36.0-46.0); HEMOGLOBIN 13.2 G/DL (11.9-15.5); IMMATURE GRANULOCYTE (%) 1.2 % (0.0-0.7); LYMPHOCYTE (%) 2.7 % (15-42); LYMPHOCYTE COUNT 0.7 K/uL (1.0-2.8); MCH 25.9 PG (29.0-34.0); MCHC 32.4 G/DL (30.0-36.0); MCV 79.8 FL (83-99); MONOCYTE (%) 2.3 % (3-12); MONOCYTE COUNT 0.6 K/uL (0-0.8); NEUTROPHIL (%) 93.6 % (45-76); NEUTROPHIL COUNT 23.3 K/uL (1.8-6.4); PLATELET COUNT 393 K/uL (156-360); RBC DIS.WIDTH-CV 15.6 % (11.8-14.6); RBC DIS.WIDTH-SD 45.2 % (39-53); WHITE BLOOD COUNT 24.9 K/uL (4.1-10.2)
[2017-06-26 06:48] LABS: INTER. NORMALIZED RATIO 1.1
[2017-06-26 06:51] LABS: PTT 36.7 SEC (25-37)
[2017-06-26 07:10] LABS: TROP-I INTERPRETATION INDETERMINATE
[2017-06-26 07:16] LABS: CHLORIDE 109 MEQ/L (99-109); CREATININE 0.6 MG/DL (0.6-1.3); GFR ESTIMATE (CALCULATED) > 59 mL/min/; MAGNESIUM 1.8 mg/dl (1.3-2.7); PHOSPHORUS 2.9 mg/dL (2.5-4.9); POTASSIUM 3.5 MEQ/L (3.7-5.4); SODIUM 143 MEQ/L (136-147); UREA NITROGEN (BUN) 16 mg/dL (9-23)
[2017-06-26 07:20] LABS: GLUCOSE 432 mg/dL (70-99)
[2017-06-26 08:00] VITALS: BP 158/92
[2017-06-26 12:01] VITALS: BP 127/88
[2017-06-26 12:33] LABS: BASOPHIL (%) 0.2 % (0-1); EOSINOPHIL (%) 0 % (0-5); HEMOGLOBIN 12.4 G/DL (11.9-15.5); IMMATURE GRANULOCYTE (%) 0.9 % (0.0-0.7); LYMPHOCYTE COUNT 0.8 K/uL (1.0-2.8); MCH 26.5 PG (29.0-34.0); MCHC 33.5 G/DL (30.0-36.0); MCV 79.1 FL (83-99); MONOCYTE (%) 3.9 % (3-12); NEUTROPHIL COUNT 23.9 K/uL (1.8-6.4); PLATELET COUNT 375 K/uL (156-360); RBC DIS.WIDTH-CV 15.8 % (11.8-14.6); RBC DIS.WIDTH-SD 44.8 % (39-53); RED BLOOD COUNT 4.68 M/uL (3.80-5.20)
[2017-06-26 12:39] LABS: INTER. NORMALIZED RATIO 1.1
[2017-06-26 12:49] LABS: HEMOGLOBIN A1c (GLYCOHEMOGLOB) 11.9 % (Below 5.7)
[2017-06-26 13:59] LABS: TROP-I INTERPRETATION INDETERMINATE; TROPONIN-I 0.46 ng/mL (0.0-0.30)
[2017-06-26 14:03] LABS: CHLORIDE 113 MEQ/L (99-109); CREATININE 0.5 MG/DL (0.6-1.3); GFR ESTIMATE (CALCULATED) > 59 mL/min/; GLUCOSE 335 mg/dL (70-99); PHOSPHORUS 2.8 mg/dL (2.5-4.9); SODIUM 144 MEQ/L (136-147); UREA NITROGEN (BUN) 17 mg/dL (9-23)
[2017-06-26 14:09] LABS: HIGH-SENS C-REACTIVE PROTEIN < 8.00 MG/DL (0.02-0.20)
[2017-06-26 17:56] VITALS: BP 111/86
[2017-06-26 18:43] LABS: HEMATOCRIT 35.9 % (36.0-46.0); HEMOGLOBIN 12.2 G/DL (11.9-15.5); LYMPHOCYTE (%) 5.2 % (15-42); MCH 26.7 PG (29.0-34.0); MCV 78.6 FL (83-99); MONOCYTE (%) 5.2 % (3-12); NEUTROPHIL (%) 87.8 % (45-76); PLATELET COUNT 377 K/uL (156-360); RBC DIS.WIDTH-CV 15.9 % (11.8-14.6); RBC DIS.WIDTH-SD 44.9 % (39-53); RED BLOOD COUNT 4.57 M/uL (3.80-5.20); WHITE BLOOD COUNT 25.1 K/uL (4.1-10.2)
[2017-06-26 18:44] LABS: BASOPHIL (%) 0.2 % (0-1); EOSINOPHIL (%) 0 % (0-5); IMMATURE GRANULOCYTE (%) 1.6 % (0.0-0.7); LYMPHOCYTE COUNT 1.3 K/uL (1.0-2.8); MONOCYTE COUNT 1.3 K/uL (0-0.8); NEUTROPHIL COUNT 22.1 K/uL (1.8-6.4)
[2017-06-26 18:53] LABS: INTER. NORMALIZED RATIO 1.1
[2017-06-26 18:55] LABS: PTT 31.1 SEC (25-37)
[2017-06-26 19:03] LABS: CHLORIDE 116 MEQ/L (99-109); POTASSIUM 3.3 MEQ/L (3.7-5.4); SODIUM 146 MEQ/L (136-147)
[2017-06-26 19:09] LABS: CREATININE 0.5 MG/DL (0.6-1.3); GFR ESTIMATE (CALCULATED) > 59 mL/min/; PHOSPHORUS 1.9 mg/dL (2.5-4.9); UREA NITROGEN (BUN) 21 mg/dL (9-23)
[2017-06-26 19:14] LABS: GLUCOSE 104 mg/dL (70-99)
[2017-06-26 19:22] LABS: TROP-I INTERPRETATION INDETERMINATE; TROPONIN-I 0.43 ng/mL (0.0-0.30)
[2017-06-26 20:00] VITALS: BP 108/80
[2017-06-27] VITALS (21 sets, daily range): BP systolic 98–153; BP diastolic 67–96
[2017-06-27 00:28] LABS: BASOPHIL (%) 0.1 % (0-1); EOSINOPHIL (%) 0 % (0-5); HEMATOCRIT 33.1 % (36.0-46.0); HEMOGLOBIN 11.3 G/DL (11.9-15.5); IMMATURE GRANULOCYTE (%) 1.4 % (0.0-0.7); LYMPHOCYTE (%) 5.7 % (15-42); LYMPHOCYTE COUNT 1.4 K/uL (1.0-2.8); MCH 26.7 PG (29.0-34.0); MCHC 34.1 G/DL (30.0-36.0); MCV 78.1 FL (83-99); MONOCYTE (%) 5.2 % (3-12); MONOCYTE COUNT 1.3 K/uL (0-0.8); NEUTROPHIL (%) 87.6 % (45-76); PLATELET COUNT 315 K/uL (156-360); RBC DIS.WIDTH-CV 15.9 % (11.8-14.6); RBC DIS.WIDTH-SD 44.4 % (39-53); RED BLOOD COUNT 4.24 M/uL (3.80-5.20); WHITE BLOOD COUNT 25.2 K/uL (4.1-10.2)
[2017-06-27 00:36] LABS: MAGNESIUM 1.8 mg/dL (1.3-2.7); SODIUM 143 mEq/L (136-147)
[2017-06-27 00:41] LABS: PHOSPHORUS 1.6 mg/dL (2.5-4.9)
[2017-06-27 00:42] LABS: CREATININE 0.6 mg/dL (0.6-1.3); GFR ESTIMATE (CALCULATED) > 59 mL/min/; UREA NITROGEN (BUN) 22 mg/dL (9-23)
[2017-06-27 00:45] LABS: CHLORIDE 116 mEq/L (99-109); GLUCOSE 175 mg/dL (70-99)
[2017-06-27 00:48] LABS: TROP-I INTERPRETATION INDETERMINATE; TROPONIN-I 0.32 ng/mL (0.0-0.30)
[2017-06-27 01:09] LABS: INTER. NORMALIZED RATIO 1.1
[2017-06-27 01:11] LABS: PTT 30.6 SEC (25-37)
[2017-06-27 06:54] LABS: BASOPHIL (%) 0.1 % (0-1); EOSINOPHIL (%) 0 % (0-5); HEMATOCRIT 31.6 % (36.0-46.0); HEMOGLOBIN 10.5 G/DL (11.9-15.5); IMMATURE GRANULOCYTE (%) 1.2 % (0.0-0.7); LYMPHOCYTE (%) 4.9 % (15-42); LYMPHOCYTE COUNT 1.2 K/uL (1.0-2.8); MCH 25.9 PG (29.0-34.0); MCHC 33.2 G/DL (30.0-36.0); MCV 77.8 FL (83-99); MONOCYTE (%) 5.1 % (3-12); MONOCYTE COUNT 1.2 K/uL (0-0.8); NEUTROPHIL (%) 88.7 % (45-76); NEUTROPHIL COUNT 21.5 K/uL (1.8-6.4); PLATELET COUNT 340 K/uL (156-360); RBC DIS.WIDTH-CV 15.9 % (11.8-14.6); RED BLOOD COUNT 4.06 M/uL (3.80-5.20); WHITE BLOOD COUNT 24.2 K/uL (4.1-10.2)
[2017-06-27 07:08] LABS: INTER. NORMALIZED RATIO 1.2
[2017-06-27 07:10] LABS: PTT 33.2 SEC (25-37)
[2017-06-27 07:18] LABS: TROP-I INTERPRETATION INDETERMINATE; TROPONIN-I 0.34 ng/mL (0.0-0.30)
[2017-06-27 07:26] LABS: CHLORIDE 116 MEQ/L (99-109); CREATININE 0.6 MG/DL (0.6-1.3); GFR ESTIMATE (CALCULATED) > 59 mL/min/; GLUCOSE 206 mg/dL (70-99); MAGNESIUM 1.8 mg/dl (1.3-2.7); PHOSPHORUS 2.4 mg/dL (2.5-4.9); POTASSIUM 2.9 MEQ/L (3.7-5.4); SODIUM 147 MEQ/L (136-147); UREA NITROGEN (BUN) 24 mg/dL (9-23)
[2017-06-27 12:17] LABS: BASOPHIL (%) 0.1 % (0-1); EOSINOPHIL (%) 0 % (0-5); HEMATOCRIT 31.6 % (36.0-46.0); HEMOGLOBIN 10.5 G/DL (11.9-15.5); IMMATURE GRANULOCYTE (%) 1.1 % (0.0-0.7); LYMPHOCYTE (%) 4.5 % (15-42); LYMPHOCYTE COUNT 1.1 K/uL (1.0-2.8); MCH 26.2 PG (29.0-34.0); MCHC 33.2 G/DL (30.0-36.0); MCV 78.8 FL (83-99); MONOCYTE COUNT 1.5 K/uL (0-0.8); NEUTROPHIL (%) 88.3 % (45-76); PLATELET COUNT 347 K/uL (156-360); RBC DIS.WIDTH-CV 16.3 % (11.8-14.6); RBC DIS.WIDTH-SD 46.4 % (39-53); RED BLOOD COUNT 4.01 M/uL (3.80-5.20); WHITE BLOOD COUNT 24.9 K/uL (4.1-10.2)
[2017-06-27 12:37] LABS: INTER. NORMALIZED RATIO 1.1
[2017-06-27 12:39] LABS: PTT 30.8 SEC (25-37)
[2017-06-27 12:40] LABS: TROP-I INTERPRETATION INDETERMINATE; TROPONIN-I 0.35 ng/mL (0.0-0.30)
[2017-06-27 12:44] LABS: CHLORIDE 119 MEQ/L (99-109); CREATININE 0.6 MG/DL (0.6-1.3); GFR ESTIMATE (CALCULATED) > 59 mL/min/; GLUCOSE 159 mg/dL (70-99); MAGNESIUM 1.9 mg/dl (1.3-2.7); PHOSPHORUS 2.6 mg/dL (2.5-4.9); POTASSIUM 2.9 MEQ/L (3.7-5.4); SODIUM 149 MEQ/L (136-147); UREA NITROGEN (BUN) 24 mg/dL (9-23)
[2017-06-27 18:25] LABS: BASOPHIL (%) 0.1 % (0-1); EOSINOPHIL (%) 0 % (0-5); HEMATOCRIT 31.6 % (36.0-46.0); HEMOGLOBIN 10.6 G/DL (11.9-15.5); IMMATURE GRANULOCYTE (%) 0.9 % (0.0-0.7); LYMPHOCYTE (%) 5.3 % (15-42); LYMPHOCYTE COUNT 1.3 K/uL (1.0-2.8); MCH 26.6 PG (29.0-34.0); MCHC 33.5 G/DL (30.0-36.0); MCV 79.2 FL (83-99); MONOCYTE (%) 5.3 % (3-12); MONOCYTE COUNT 1.3 K/uL (0-0.8); NEUTROPHIL (%) 88.4 % (45-76); PLATELET COUNT 347 K/uL (156-360); RBC DIS.WIDTH-CV 16.8 % (11.8-14.6); RBC DIS.WIDTH-SD 47.5 % (39-53); RED BLOOD COUNT 3.99 M/uL (3.80-5.20); WHITE BLOOD COUNT 23.7 K/uL (4.1-10.2)
[2017-06-27 18:28] LABS: INTER. NORMALIZED RATIO 1.2
[2017-06-27 18:31] LABS: PTT 30.1 SEC (25-37)
[2017-06-27 18:45] LABS: CHLORIDE 115 MEQ/L (99-109); CREATININE 0.6 MG/DL (0.6-1.3); GFR ESTIMATE (CALCULATED) > 59 mL/min/; GLUCOSE 198 mg/dL (70-99); PHOSPHORUS 2.8 mg/dL (2.5-4.9); SODIUM 143 MEQ/L (136-147); UREA NITROGEN (BUN) 23 mg/dL (9-23)
[2017-06-27 18:51] LABS: TROP-I INTERPRETATION NEGATIVE; TROPONIN-I 0.28 ng/mL (0.0-0.30)
[2017-06-27 18:53] LABS: POTASSIUM 3.6 MEQ/L (3.7-5.4)
[2017-06-28] VITALS (22 sets, daily range): BP systolic 139–188; BP diastolic 78–109
[2017-06-28 01:02] LABS: BASOPHIL (%) 0.1 % (0-1); EOSINOPHIL (%) 0 % (0-5); HEMATOCRIT 31.2 % (36.0-46.0); HEMOGLOBIN 10.5 G/DL (11.9-15.5); IMMATURE GRANULOCYTE (%) 0.8 % (0.0-0.7); LYMPHOCYTE (%) 8.4 % (15-42); LYMPHOCYTE COUNT 1.5 K/uL (1.0-2.8); MCH 26.4 PG (29.0-34.0); MCHC 33.7 G/DL (30.0-36.0); MCV 78.4 FL (83-99); MONOCYTE COUNT 1.1 K/uL (0-0.8); NEUTROPHIL (%) 84.7 % (45-76); NEUTROPHIL COUNT 15.4 K/uL (1.8-6.4); PLATELET COUNT 329 K/uL (156-360); RBC DIS.WIDTH-CV 16.6 % (11.8-14.6); RBC DIS.WIDTH-SD 47.4 % (39-53); RED BLOOD COUNT 3.98 M/uL (3.80-5.20); WHITE BLOOD COUNT 18.2 K/uL (4.1-10.2)
[2017-06-28 01:16] LABS: INTER. NORMALIZED RATIO 1.2
[2017-06-28 01:19] LABS: PTT 33.1 SEC (25-37)
[2017-06-28 01:20] LABS: CHLORIDE 119 mEq/L (99-109); POTASSIUM 3.1 mEq/L (3.7-5.4); SODIUM 147 mEq/L (136-147)
[2017-06-28 01:21] LABS: GLUCOSE 170 mg/dL (70-99)
[2017-06-28 01:25] LABS: CREATININE 0.7 mg/dL (0.6-1.3); GFR ESTIMATE (CALCULATED) > 59 mL/min/
[2017-06-28 01:26] LABS: UREA NITROGEN (BUN) 21 mg/dL (9-23)
[2017-06-28 04:58] LABS: BASOPHIL (%) 0.1 % (0-1); EOSINOPHIL (%) 0 % (0-5); HEMATOCRIT 30.8 % (36.0-46.0); HEMOGLOBIN 10.1 G/DL (11.9-15.5); IMMATURE GRANULOCYTE (%) 0.8 % (0.0-0.7); LYMPHOCYTE (%) 9.8 % (15-42); LYMPHOCYTE COUNT 1.6 K/uL (1.0-2.8); MCH 25.8 PG (29.0-34.0); MCHC 32.8 G/DL (30.0-36.0); MCV 78.6 FL (83-99); MONOCYTE (%) 8.4 % (3-12); MONOCYTE COUNT 1.4 K/uL (0-0.8); NEUTROPHIL (%) 80.9 % (45-76); NEUTROPHIL COUNT 13.5 K/uL (1.8-6.4); PLATELET COUNT 338 K/uL (156-360); RBC DIS.WIDTH-CV 16.7 % (11.8-14.6); RBC DIS.WIDTH-SD 47.7 % (39-53); RED BLOOD COUNT 3.92 M/uL (3.80-5.20); WHITE BLOOD COUNT 16.7 K/uL (4.1-10.2)
[2017-06-28 05:23] LABS: CHLORIDE 118 MEQ/L (99-109); CREATININE 0.6 MG/DL (0.6-1.3); GFR ESTIMATE (CALCULATED) > 59 mL/min/; GLUCOSE 131 mg/dL (70-99); POTASSIUM 3.1 MEQ/L (3.7-5.4); SODIUM 149 MEQ/L (136-147); UREA NITROGEN (BUN) 18 mg/dL (9-23)
[2017-06-28 06:09] LABS: INTER. NORMALIZED RATIO 1.2
[2017-06-28 06:11] LABS: PTT 33.3 SEC (25-37)
[2017-06-28 12:41] LABS: BASOPHIL (%) 0.1 % (0-1); EOSINOPHIL (%) 0 % (0-5); HEMATOCRIT 32.7 % (36.0-46.0); HEMOGLOBIN 10.8 G/DL (11.9-15.5); IMMATURE GRANULOCYTE (%) 0.8 % (0.0-0.7); LYMPHOCYTE (%) 12.4 % (15-42); LYMPHOCYTE COUNT 1.7 K/uL (1.0-2.8); MCH 26.4 PG (29.0-34.0); MONOCYTE (%) 8.4 % (3-12); MONOCYTE COUNT 1.2 K/uL (0-0.8); NEUTROPHIL (%) 78.3 % (45-76); NEUTROPHIL COUNT 10.9 K/uL (1.8-6.4); PLATELET COUNT 293 K/uL (156-360); RBC DIS.WIDTH-SD 49.2 % (39-53); RED BLOOD COUNT 4.09 M/uL (3.80-5.20); WHITE BLOOD COUNT 13.9 K/uL (4.1-10.2)
[2017-06-28 12:48] LABS: INTER. NORMALIZED RATIO 1.2
[2017-06-28 12:51] LABS: PTT 28.8 SEC (25-37)
[2017-06-28 13:44] LABS: CHLORIDE 115 MEQ/L (99-109); CREATININE 0.6 MG/DL (0.6-1.3); GFR ESTIMATE (CALCULATED) > 59 mL/min/; GLUCOSE 173 mg/dL (70-99); POTASSIUM 3.3 MEQ/L (3.7-5.4); SODIUM 148 MEQ/L (136-147); UREA NITROGEN (BUN) 15 mg/dL (9-23)
[2017-06-28 18:06] LABS: BASOPHIL (%) 0.2 % (0-1); EOSINOPHIL (%) 0 % (0-5); HEMATOCRIT 34.3 % (36.0-46.0); HEMOGLOBIN 10.9 G/DL (11.9-15.5); LYMPHOCYTE (%) 14.7 % (15-42); MCH 25.5 PG (29.0-34.0); MCHC 31.8 G/DL (30.0-36.0); MCV 80.1 FL (83-99); MONOCYTE (%) 10.6 % (3-12); MONOCYTE COUNT 1.4 K/uL (0-0.8); NEUTROPHIL (%) 73.5 % (45-76); PLATELET COUNT 340 K/uL (156-360); RBC DIS.WIDTH-CV 16.8 % (11.8-14.6); RBC DIS.WIDTH-SD 49.5 % (39-53); RED BLOOD COUNT 4.28 M/uL (3.80-5.20); WHITE BLOOD COUNT 13.6 K/uL (4.1-10.2)
[2017-06-28 18:36] LABS: CHLORIDE 112 MEQ/L (99-109); CREATININE 0.7 MG/DL (0.6-1.3); GFR ESTIMATE (CALCULATED) > 59 mL/min/; GLUCOSE 182 mg/dL (70-99); POTASSIUM 3.6 MEQ/L (3.7-5.4); SODIUM 143 MEQ/L (136-147); UREA NITROGEN (BUN) 16 mg/dL (9-23)
[2017-06-28 18:38] LABS: INTER. NORMALIZED RATIO 1.2
[2017-06-28 18:40] LABS: PTT 31.5 SEC (25-37)
[2017-06-29] VITALS (24 sets, daily range): BP systolic 128–182; BP diastolic 72–106
[2017-06-29 18:23] LABS: BASE EXCESS 1.6 mEq/L (-3 to +3); BICARBONATE 23.7 mEq/L (22-26); CARBOXY HGB 0 % (0-5); METHEMOGLOBIN 0.7 % (0-1.5)
[2017-06-29 18:24] LABS: COMMENTS - BLOOD GASES A+C+; DEVICE VENT; FI02 40 %; MECHANICAL RATE 16 resp/min; MODE ACVC; PCO2 29 mm Hg (35-45); PEEP 5 CM/H20; PO2 95 mm Hg (80-100); SITE RR; TIDAL VOLUME 450 ML; TOTAL RESP RATE 23 resp/min; pH 7.52 (7.35-7.45)
[2017-06-29 18:47] LABS: HEMATOCRIT 36.4 % (36.0-46.0); HEMOGLOBIN 11.5 G/DL (11.9-15.5); MCH 25.5 PG (29.0-34.0); MCHC 31.6 G/DL (30.0-36.0); MCV 80.7 FL (83-99); PLATELET COUNT 355 K/uL (156-360); RBC DIS.WIDTH-CV 16.9 % (11.8-14.6); RED BLOOD COUNT 4.51 M/uL (3.80-5.20); WHITE BLOOD COUNT 12.8 K/uL (4.1-10.2)
[2017-06-29 18:47] LABS: APPEARANCE SL.HAZY ((CLEAR)); BILIRUBIN NEGATIVE; BLOOD SMALL; COLOR YELLOW ((YELLOW)); GLUCOSE (STRIP) >=500; KETONES 20; LEUKOCYTES NEGATIVE; NITRITE NEGATIVE; PROTEIN (STRIP) >=500; SPECIFIC GRAVITY 1.035 (1.000-1.030); UROBILINOGEN 0.2 MG/DL (0.2-1.0)
[2017-06-29 18:51] LABS: INTER. NORMALIZED RATIO 1.2
[2017-06-29 18:54] LABS: PTT 32.6 SEC (25-37)
[2017-06-29 19:07] LABS: QUANTITATIVE HCG < 4.0 MIU/ML
[2017-06-29 19:24] LABS: ALBUMIN 3.2 G/DL (3.2-4.8); ALKALINE PHOSPHATASE 78 IU/L (3-129); ALT (GPT) 22 IU/L (3-49); CHLORIDE 119 MEQ/L (99-109); CREATININE 0.8 MG/DL (0.6-1.3); DIRECT BILIRUBIN 0.1 mg/dL (0.0-0.3); GFR ESTIMATE (CALCULATED) > 59 mL/min/; PHOSPHORUS 2.4 mg/dL (2.5-4.9); POTASSIUM 3.4 MEQ/L (3.7-5.4); TOTAL PROTEIN 5.9 G/DL (6.4-8.3)
[2017-06-29 19:25] LABS: AST (GOT) 38 IU/L (2-34); GLUCOSE 276 mg/dL (70-99); MAGNESIUM 2.4 mg/dl (1.3-2.7); SODIUM 156 MEQ/L (136-147); TOTAL BILIRUBIN 0.3 MG/DL (0.0-1.0); UREA NITROGEN (BUN) 25 mg/dL (9-23)
[2017-06-29 19:31] LABS: BACTERIA NONE SEEN /HPF; EPITHELIAL CELLS RARE /HPF; HYALINE CASTS 0-5 /LPF; MUCUS TRACE /LPF; RED BLOOD CELLS TNTC /HPF (0-5); WHITE BLOOD CELLS 0-5 /HPF (0-5)
[2017-06-30 00:06] LABS: BASE EXCESS 2.2 mEq/L (-3 to +3); CARBOXY HGB 0.1 % (0-5); COMMENTS - BLOOD GASES C+; DEVICE VENT; FI02 40 %; MECHANICAL RATE 16 resp/min; METHEMOGLOBIN 0.7 % (0-1.5); MODE AC; PCO2 32 mm Hg (35-45); PEEP 5 CM/H20; PO2 80 mm Hg (80-100); SITE RB; TIDAL VOLUME 450 ML; TOTAL RESP RATE 19 resp/min
[2017-06-30 00:48] LABS: HEMATOCRIT 35.3 % (36.0-46.0); HEMOGLOBIN 11.5 G/DL (11.9-15.5); MCH 26.5 PG (29.0-34.0); MCHC 32.6 G/DL (30.0-36.0); MCV 81.3 FL (83-99); PLATELET COUNT 334 K/uL (156-360); RBC DIS.WIDTH-CV 16.8 % (11.8-14.6); RBC DIS.WIDTH-SD 49.8 % (39-53); RED BLOOD COUNT 4.34 M/uL (3.80-5.20); WHITE BLOOD COUNT 14.7 K/uL (4.1-10.2)
[2017-06-30 00:58] LABS: INTER. NORMALIZED RATIO 1.2
[2017-06-30 01:00] LABS: CHLORIDE 123 mEq/L (99-109); SODIUM 159 mEq/L (136-147)
[2017-06-30 01:01] LABS: ALBUMIN 3.1 g/dL (3.2-4.8)
[2017-06-30 01:03] LABS: GLUCOSE 200 mg/dL (70-99); TOTAL PROTEIN 5.8 g/dL (6.4-8.3)
[2017-06-30 01:05] LABS: TOTAL BILIRUBIN 0.2 mg/dL (0.0-1.0)
[2017-06-30 01:07] LABS: ALKALINE PHOSPHATASE 89 IU/L (3-129); CREATININE 0.8 mg/dL (0.6-1.3); GFR ESTIMATE (CALCULATED) > 59 mL/min/; PHOSPHORUS 2.1 mg/dL (2.5-4.9)
[2017-06-30 01:08] LABS: AST (GOT) 49 IU/L (2-34); UREA NITROGEN (BUN) 25 mg/dL (9-23)
[2017-06-30 01:09] LABS: DIRECT BILIRUBIN 0.1 mg/dL (0.0-0.3)
[2017-06-30 01:10] LABS: ALT (GPT) 26 IU/L (3-49); MAGNESIUM 2.4 mg/dL (1.3-2.7)
[2017-06-30 01:30] LABS: BASE EXCESS 3.5 mEq/L (-3 to +3); BICARBONATE 26.1 mEq/L (22-26); CARBOXY HGB 0.3 % (0-5); COMMENTS - BLOOD GASES C+; DEVICE VENT; FI02 40 %; MECHANICAL RATE 12 resp/min; METHEMOGLOBIN 0.7 % (0-1.5); MODE AC; PCO2 32 mm Hg (35-45); PEEP 5 CM/H20; PO2 84 mm Hg (80-100); SITE RB; TIDAL VOLUME 450 ML; TOTAL RESP RATE 17 resp/min; pH 7.52 (7.35-7.45)
[2017-06-30 02:00] VITALS: BP 156/82
[2017-06-30 03:00] VITALS: BP 162/92
[2017-06-30 04:34] LABS: BASE EXCESS 0.8 mEq/L (-3 to +3); BICARBONATE 23.4 mEq/L (22-26); CARBOXY HGB 0 % (0-5); METHEMOGLOBIN 0.7 % (0-1.5); PCO2 30 mm Hg (35-45)
[2017-06-30 04:35] LABS: COMMENTS - BLOOD GASES C+; DEVICE VENT; FI02 100 %; MECHANICAL RATE 16 resp/min; MODE SIMV; PEEP 5 CM/H20; PO2 452 mm Hg (80-100); PRES. SUPPORT 18 CM/H2O; SITE A-LINE; TIDAL VOLUME 450 ML; TOTAL RESP RATE 41 resp/min
[2017-06-30 05:00] VITALS: BP 120/74
[2017-06-30 06:00] VITALS: BP 137/78
[2017-06-30 06:08] LABS: BASE EXCESS -0.7 mEq/L (-3 to +3); BICARBONATE 21.8 mEq/L (22-26); CARBOXY HGB 0.3 % (0-5); METHEMOGLOBIN 0.5 % (0-1.5); PCO2 28 mm Hg (35-45)
[2017-06-30 06:09] LABS: COMMENTS - BLOOD GASES C+; DEVICE VENT; FI02 40 %; MECHANICAL RATE 16 resp/min; MODE AC; PEEP 5 CM/H20; PO2 62 mm Hg (80-100); SITE A-LINE; TIDAL VOLUME 450 ML; TOTAL RESP RATE 23 resp/min
[2017-06-30 06:26] LABS: HEMATOCRIT 32.5 % (36.0-46.0); HEMOGLOBIN 10.5 G/DL (11.9-15.5); MCH 26.4 PG (29.0-34.0); MCHC 32.3 G/DL (30.0-36.0); MCV 81.9 FL (83-99); PLATELET COUNT 318 K/uL (156-360); RBC DIS.WIDTH-CV 17.1 % (11.8-14.6); RBC DIS.WIDTH-SD 50.8 % (39-53); RED BLOOD COUNT 3.97 M/uL (3.80-5.20); WHITE BLOOD COUNT 15.4 K/uL (4.1-10.2)
[2017-06-30 06:32] LABS: INTER. NORMALIZED RATIO 1.2
[2017-06-30 06:34] LABS: PTT 30.8 SEC (25-37)
[2017-06-30 06:53] LABS: ALBUMIN 2.8 G/DL (3.2-4.8); ALKALINE PHOSPHATASE 71 IU/L (3-129); ALT (GPT) 20 IU/L (3-49); AST (GOT) 41 IU/L (2-34); CHLORIDE 124 MEQ/L (99-109); CREATININE 0.7 MG/DL (0.6-1.3); DIRECT BILIRUBIN 0.1 mg/dL (0.0-0.3); GFR ESTIMATE (CALCULATED) > 59 mL/min/; MAGNESIUM 2.2 mg/dl (1.3-2.7); PHOSPHORUS 2.1 mg/dL (2.5-4.9); POTASSIUM 3.5 MEQ/L (3.7-5.4); SODIUM 159 MEQ/L (136-147); TOTAL BILIRUBIN 0.3 MG/DL (0.0-1.0); TOTAL PROTEIN 5.1 G/DL (6.4-8.3); UREA NITROGEN (BUN) 26 mg/dL (9-23)
[2017-06-30 06:55] LABS: GLUCOSE 315 mg/dL (70-99)
[2017-06-30 10:12] VITALS: BP 143/77
[2017-06-30 11:26] LABS: HEPATITIS B SURFACE ANTIGEN Nonreactive; HEPATITIS C ANTIBODY Nonreactive
[2017-06-30 11:27] LABS: HIV-1/2 AB/AG COMBO Nonreactive
== END 2017-06-30 13:31 | DRG 917 ==
LOC: EME 14:49 → CATH 15:58 → CANRESERV 16:00 → ENRESERV 16:00 → 4WEST 16:02 → 2SOUTH 16:02 → ENRESERV 16:09 → 4WEST 16:17 → CANRESERV 06-30 13:08 → 2SOUTH 06-30 13:08 → ENRESERV 06-30 13:08 → 2SOUTH 06-30 13:31
PROVIDERS: Emergency Medicine; Internal Medicine; Internal Medicine Cardiovascular Disease; Internal Medicine Critical Care Medicine
DX: T40.2X1A Poisoning by other opioids, accidental (unintentional), initial encounter (principal); T42.4X1A Poisoning by benzodiazepines, accidental (unintentional), initial encounter; R56.9 Unspecified convulsions; G25.3 Myoclonus; G93.1 Anoxic brain damage, not elsewhere classified; R40.20 Unspecified coma; I67.82 Cerebral ischemia; I49.01 Ventricular fibrillation; I46.9 Cardiac arrest, cause unspecified; Z66 Do not resuscitate; Z51.5 Encounter for palliative care; E11.65 Type 2 diabetes mellitus with hyperglycemia; E87.2 Acidosis; E87.6 Hypokalemia; E78.5 Hyperlipidemia, unspecified; I10 Essential (primary) hypertension; F31.9 Bipolar disorder, unspecified; F60.2 Antisocial personality disorder; I25.10 Atherosclerotic heart disease of native coronary artery without angina pectoris; F41.9 Anxiety disorder, unspecified; I95.9 Hypotension, unspecified; F17.200 Nicotine dependence, unspecified, uncomplicated; Z79.4 Long term (current) use of insulin
CPT/HCPCS: 36600; 36620; 70450; 70551; 71045; 80047; 80048; 80048 91; 80053; 80202; 81003; 82150; 82248; 82330; 82803; 82948; 83036; 83605; 83690; 83735; 83930; 84100; 84145 90; 84295; 84484; 84702; 84999; 85025; 85025 91; 85027; 85610; 85730; 86141; 86803; 86850; 86900; 86901; 87040; 87070; 87077; 87086; 87186; 87205; 87340; 87389; 87502; 87641; 87801; 93005; 94002; 94003; 95819; 99281; 99285; C1751; C1769; C1887; G0480; J0133; J0282; J0290; J0360; J1644; J1650; J1815; J1953; J2060; J2250; J2543; J3010; J3370; J7030; J7050; J7070; J7120; S0028